=== PATIENT | male | born 2000 | race African-American/Black ===

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

== ENCOUNTER 2018-01-14 08:50 | Emergency (ER) | payer OTHER ==
[~2018-01-14] VITALS: Ht 180.3 cm; Wt 73.9 kg
[2018-01-14 08:59] VITALS: BP 122/90
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
[2018-01-14] MEDS ORDERED: ACETAMINOPHEN 500 MG TABLET PO ONE (09:30)
== END 2018-01-14 09:30 | disposition home or self-care (01) ==
LOC: ER 08:50
DX: G89.11 Acute pain due to trauma (principal); M79.662 Pain in left lower leg; J45.909 Unspecified asthma, uncomplicated; F17.210 Nicotine dependence, cigarettes, uncomplicated
CPT/HCPCS: 99282

== ENCOUNTER 2018-05-13 20:34 | Emergency (ER) | payer OTHER ==
[~2018-05-13] VITALS: Ht 180.3 cm; Wt 79.4 kg
--- NOTE | 2018-05-13 20:39 | ED.ADGEN ---
Past History Past Medical History: Asthma Past Surgical History: Tonsillectomy Smoking: Cigarettes Alcohol Use: Occasionally Drug Use: Other Adult General Chief Complaint Chief Complaint ".. My gut is hurting.... I got this pain here on my Lt. side... I ve had constipation .. before... but this seems different... it been hurting me more tonight.." HPI HPI Patient is a 17 year old male who presents with abdomen pain and Lt flank pain. Pt. denies any trauma. Areas of questionable intake some bad chicken earlier today. No recent travel or specific ill contacts. Does have a history of constipation. Denies any dysuria. Pain appears to be localized flank and lower abdomen. Patient never had a colonoscopy. Review of Systems Review of Systems Constitutional: Denies fever or chills [] Eyes: Denies change in visual acuity, redness, or eye pain [] HENT: Denies nasal congestion or sore throat [] Respiratory: Denies cough or shortness of breath [] Cardiovascular: No additional information not addressed in HPI [] GI: complaints of Lt lower abdominal pain, nausea,. Denies vomiting, bloody stools or diarrhea [] : Denies dysuria or hematuria [] Musculoskeletal: Denies back pain or joint pain [] Integument: Denies rash or skin lesions [] Neurologic: Denies headache, focal weakness or sensory changes [] Endocrine: Denies polyuria or polydipsia [] All other systems were reviewed and found to be within normal limits, except as documented in this note. Family History Family History Non-contributory Current Medications Current Medications Current Medications Medications (Trade) Dose Ordered Sig/Sepideh Start Time Stop Time Status Last Admin Dose Admin Famotidine (Pepcid Vial) 20 mg 1X ONCE 05/13/18 20:45 05/13/18 20:46 DC 05/13/18 21:05 20 MG Ketorolac Tromethamine (Toradol 30mg Vial) 30 mg 1X ONCE 05/13/18 20:45 05/13/18 20:46 DC 05/13/18 21:06 30 MG Lactated Ringer's 1,000 ml @ 1,000 mls/hr Q1H 05/13/18 20:40 05/13/18 21:40 DC 05/13/18 21:04 1,000 MLS/HR Magnesium Hydroxide (Milk Of Magnesia) 2,400 mg STK-MED ONCE 05/14/18 01:42 05/14/18 01:56 DC Ondansetron HCl (Zofran) 8 mg 1X ONCE 05/13/18 20:45 05/13/18 20:46 DC 05/13/18 21:05 8 MG Allergies Allergies Allergies Coded Allergies Type Severity Reaction Last Updated Verified No Known Drug Allergies 12/02/16 No Physical Exam Physical Exam Constitutional: Well developed, well nourished, no acute distress, non-toxic appearance. [] HENT: Normocephalic, atraumatic, bilateral external ears normal, oropharynx moist, no oral exudates, nose normal. [] Eyes: PERRLA, EOMI, conjunctiva normal, no discharge. [] Neck: Normal range of motion, no tenderness, supple, no stridor. [] Cardiovascular:Heart rate regular rhythm, no murmur [] Lungs & Thorax: Bilateral breath sounds clear to auscultation [] Abdomen: Bowel sounds normal, soft, mild Lt flank and abd. pain/ tenderness, no masses, no pulsatile masses. [] No true rebound. Declined rectal Skin: Warm, dry, no erythema, no rash. [] Back: No tenderness, no CVA tenderness. [] Extremities: No tenderness, no cyanosis, no clubbing, ROM intact, no edema. [] No Psoas Neurologic: Alert and oriented X 3, normal motor function, normal sensory function, no focal deficits noted. [] Psychologic: Affect anxious, judgement normal, mood normal. [] Current Patient Data Vital Signs Vital Signs Date Time Temp Pulse Resp B/P (MAP) Pulse Ox O2 Delivery O2 Flow Rate FiO2 05/14/18 01:46 67 18 123/78 (93) 100 Room Air 05/13/18 20:42 97.9 Lab Results Laboratory Tests Test 05/13/18 20:55 05/13/18 22:20 White Blood Count 7.0 x10^3/uL (4.0-11.0) Red Blood Count 4.83 x10^6/uL (4.30-5.70) Hemoglobin 14.4 g/dL (13.0-17.5) Hematocrit 43.0 % (39.0-53.0) Mean Corpuscular Volume 89 fL (79-100) Mean Corpuscular Hemoglobin 30 pg (25-35) Mean Corpuscular Hemoglobin Concent 34 g/dL (31-37) Red Cell Distribution Width 13.1 % (11.5-14.5) Platelet Count 241 x10^3/uL (140-400) Neutrophils (%) (Auto) 55 % (31-73) Lymphocytes (%) (Auto) 37 % (24-48) Monocytes (%) (Auto) 7 % (0-9) Eosinophils (%) (Auto) 0 % (0-3) Basophils (%) (Auto) 1 % (0-3) Neutrophils # (Auto) 3.8 x10^3uL (1.8-7.7) Lymphocytes # (Auto) 2.6 x10^3/uL (1.0-4.8) Monocytes # (Auto) 0.5 x10^3/uL (0.0-1.1) Eosinophils # (Auto) 0.0 x10^3/uL (0.0-0.7) Basophils # (Auto) 0.1 x10^3/uL (0.0-0.2) Prothrombin Time 10.9 SEC (9.4-11.4) Prothrombin Time INR 1.1 (0.9-1.1) PTT 24 SEC (23-33) Sodium Level 145 mmol/L (136-145) Potassium Level 4.1 mmol/L (3.5-5.1) Chloride Level 105 mmol/L (98-107) Carbon Dioxide Level 28 mmol/L (21-32) Anion Gap 12 (6-14) Blood Urea Nitrogen 10 mg/dL (8-26) Creatinine 1.2 mg/dL (0.7-1.3) Estimated GFR (Cockcroft-Gault) 94.4 Glucose Level 91 mg/dL (70-99) Calcium Level 9.4 mg/dL (8.5-10.1) Total Bilirubin 0.7 mg/dL (0.2-1.0) Direct Bilirubin 0.2 mg/dL (0.0-0.2) Aspartate Amino Transferase (AST) 16 U/L (15-37) Alanine Aminotransferase (ALT) 17 U/L (16-63) Alkaline Phosphatase 56 U/L (46-116) Creatine Kinase 347 U/L (39-308) H Troponin I Quantitative < 0.017 ng/mL (0-0.055) Total Protein 7.4 g/dL (6.4-8.2) Albumin 4.3 g/dL (3.4-5.0) Amylase Level 41 U/L (25-115) Lipase 69 U/L (73-393) L Urine Collection Type Unknown Urine Color Yellow Urine Clarity Clear Urine pH 7.0 Urine Specific [place] 1.020 Urine Protein 100 mg/dl (NEG-TRACE) Urine Glucose (UA) Neg mg/dL (NEG) Urine Ketones (Stick) Neg mg/dL (NEG) Urine Blood Neg (NEG) Urine Nitrite Neg (NEG) Urine Bilirubin Neg (NEG) Urine Urobilinogen Dipstick 1 mg/dL (0.2 mg/dL) Urine Leukocyte Esterase Neg (NEG) Urine RBC 3-5 /HPF (0-2) Urine WBC 1-4 /HPF (0-4) Urine Squamous Epithelial Cells Few /LPF Urine Bacteria 0 /HPF (0-FEW) Urine Opiates Screen Neg (NEG) Urine Methadone Screen Neg (NEG) Urine Barbiturates Neg (NEG) Urine Phencyclidine Screen Neg (NEG) Urine Amphetamine/Methamphetamine Pos (NEG) Urine Benzodiazepines Screen Neg (NEG) Urine Cocaine Screen Neg (NEG) Urine Cannabinoids Screen Pos (NEG) Urine Ethyl Alcohol Neg (NEG) EKG EKG [] Radiology/Procedures Radiology/Procedures My interpretation of Abd. Film shows no acute cardio pulmonary findings,,no free air under the diaphragm., Non- specific bowel gas pattern. CT shows no surgical pathology[] Course & Med Decision Making Course & Med Decision Making Pertinent Labs and Imaging studies reviewed. (See chart for details) Clear fluid diet only x 48 hrs. . No solids or milk products. Must allow bowel rest for next 2 days. Follow up with primary. No illicit drug use. Push fluids. Re-exam if no improvement. Recommend colon exam- with scope if persistent interment abd. pain. [] Final Impression Final Impression 1. Abdomen Pain[] 2. Polysubstance Abuse 3. Hematuria 4. Constipation Dragon Disclaimer Dragon Disclaimer This electronic medical record was generated, in whole or in part, using a voice recognition dictation system. JALEN RAPHAEL MD May 13, 2018 20:39
[2018-05-13] MEDS ORDERED: IV RINGERS SOLUTION,LACTATED 1,000 ML IV SCH (20:40)
[2018-05-13] MEDS ORDERED: KETOROLAC 30 MG/ML VIAL. IV ONE (20:45)
[2018-05-13] MEDS ORDERED: ONDANSETRON PF 4 MG/2 ML VIAL. IV ONE (20:45)
[2018-05-13] MEDS ORDERED: FAMOTIDINE 20 MG/2 ML VIAL IVP ONE (20:45)
[2018-05-13 21:18] LABS: BASO # 0.1 x10^3/uL (0.0-0.2); BASO % 1 % (0-3); EOS % 0 % (0-3); HEMOGLOBIN 14.4 g/dL (13.0-17.5); LYMPH # 2.6 x10^3/uL (1.0-4.8); LYMPH % 37 % (24-48); MEAN CORPUSCULAR HEMOGLOBIN 30 pg (25-35); MEAN CORPUSCULAR HGB CONC 34 g/dL (31-37); MEAN CORPUSCULAR VOLUME 89 fL (79-100); MONO # 0.5 x10^3/uL (0.0-1.1); MONO % 7 % (0-9); NEUT # 3.8 x10^3uL (1.8-7.7); NEUT % 55 % (31-73); PLATELET COUNT 241 x10^3/uL (140-400); RED BLOOD COUNT 4.83 x10^6/uL (4.30-5.70); RED CELL DISTRIBUTION WIDTH 13.1 % (11.5-14.5)
[2018-05-13 21:26] LABS: ALBUMIN 4.3 g/dL (3.4-5.0); CALCIUM 9.4 mg/dL (8.5-10.1); CREATININE 1.2 mg/dL (0.7-1.3); DIRECT BILIRUBIN 0.2 mg/dL (0.0-0.2); GFR 94.4; POTASSIUM 4.1 mmol/L (3.5-5.1); TOTAL BILIRUBIN 0.7 mg/dL (0.2-1.0); TOTAL PROTEIN 7.4 g/dL (6.4-8.2)
[2018-05-13 22:46] LABS: BARBITURATES NEG (NEG); BENZODIAZEPINES NEG (NEG); CANNABINOIDS POS (NEG); COCAINE NEG (NEG); METHADONE NEG (NEG); OPIATES NEG (NEG); PHENCYCLIDINE NEG (NEG)
[2018-05-13 22:51] LABS: AMPHETAMINE/METHAMPHETAMINE POS (NEG)
[2018-05-13 23:00] LABS: BILIRUBIN,URINE NEG (NEG); CLARITY,URINE CLEAR; COLOR,URINE YELLOW; GLUCOSE,URINE NEG (NEG); NITRITE,URINE NEG (NEG); UROBILINOGEN,URINE 1 mg/dL (0.2 mg/dL)
[2018-05-13 23:01] LABS: BACTERIA,URINE 0 /HPF (0-FEW)
[2018-05-13 23:02] LABS: SQUAMOUS EPITHELIAL CELL,UR FEW /LPF
--- NOTE | 2018-05-14 01:24 | RAD ---
PQRS Compliance Statement: One or more of the following individualized dose reduction techniques were utilized for this examination: 1. Automated exposure control 2. Adjustment of the mA and/or kV according to patient size 3. Use of iterative reconstruction technique CT ABDOMEN PELVIS WO CONTRAST Clinical Indication: LEFT LOWER QUADRANT AND LEFT FLANK PAIN Comparison: None. Technique: Helical CT imaging of the abdomen and pelvis is performed without IV or oral contrast. Findings: Evaluation of solid organs and bowel is limited without oral and IV contrast, decreasing sensitivity for detection of pathology. Lung bases are clear. Cardiac size normal. Gallbladder is contracted. Liver, spleen, pancreas, adrenal glands, abdominal aorta, and kidneys are normal. Stomach unremarkable. No dilated small bowel. No colon wall thickening. The appendix is normal caliber and there is air in the lumen. No abdominal adenopathy or free fluid. Urinary bladder is normal. Prostate size normal. No pelvic free fluid. No acute bone abnormality. IMPRESSION: No acute abdominal or pelvic abnormality. Electronically signed by: Jamir Gonzalez MD (05/14/2018 1:20 AM) [id number]
[2018-05-14] MEDS ORDERED: MAGNESIUM HYDROXIDE 2,400 MG/30 ML ORAL.SUSP. ONE (01:42)
[2018-05-14] MEDS ORDERED: MAGNESIUM HYDROXIDE 2,400 MG/30 ML ORAL.SUSP. PO ONE (01:45)
[2018-05-14 01:46] VITALS: BP 123/78
--- NOTE | 2018-05-14 08:33 | RAD ---
EXAM: Frontal view of the chest, AP views of the abdomen in upright and supine positions. CLINICAL INDICATION: LEFT SIDED ABDOMINAL PAIN COMPARISON: None. FINDINGS and IMPRESSION: The heart is not enlarged. Mediastinal and hilar contours are normal. No focal parenchymal airspace opacity. No pleural effusion or pneumothorax. No abnormal small or large bowel dilatation, although there is a relative paucity of small bowel gas. No evidence for bowel obstruction. Mild colonic stool content. No abnormal soft tissue mass effect. No suspicious calcifications are seen. No free intraperitoneal gas. Electronically signed by: Graham Adler MD (05/14/2018 8:30 AM) [facility]
== END 2018-05-14 01:56 | disposition home or self-care (01) ==
LOC: ER 20:34
DX: K59.00 Constipation, unspecified (principal); R31.9 Hematuria, unspecified; F19.10 Other psychoactive substance abuse, uncomplicated; F17.210 Nicotine dependence, cigarettes, uncomplicated; J45.909 Unspecified asthma, uncomplicated
CPT/HCPCS: 36415; 74022; 74176; 80048; 80076; 80307; 81001; 82150; 82550; 83690; 84484; 85025; 85610; 85730; 96374; 96375; 99284; J1885; J2405; J3490; J7120

== ENCOUNTER 2020-09-06 21:26 | Emergency (ER) | payer SELFPAY ==
[~2020-09-06] VITALS: Ht 180.3 cm; Wt 78.0 kg
[~2020-09-06 21:26] MED LIST changes: +ALBU2.5V8 IH; -ALBU6.7H IH; +PATCH REMOVAL. MC SCH
--- NOTE | 2020-09-06 21:54 | PHYS DOC ---
Past History Past Medical History: No Pertinent History Past Surgical History: Tonsillectomy Smoking: Cigarettes Alcohol Use: Heavy Drug Use: Marijuana Adult General HPI HPI Patient is an otherwise healthy 19-year-old male who presents with a chief complaint of left shoulder pain. States has been going on for about 3 years, is right on the back of his shoulder blade, 6 out of 10, dull and achy in nature at its worst, intermittent and cannot identify any alleviating or aggravating factors. [facility] he is never seen a doctor for this. [facility] he also would like an STD check although he is having no symptoms for general health purposes. Denies headache, neck pain, chest pain, shortness of breath, abdominal pain, nausea, vomiting, dysuria, hematuria, penile discharge or pain, scrotal pain, diarrhea, blood in the stool or rectal pain. Denies any history of STIs. Review of Systems Review of Systems Review of systems otherwise unremarkable except noted in HPI Allergies Allergies Allergies Coded Allergies Type Severity Reaction Last Updated Verified No Known Drug Allergies 12/02/16 No Physical Exam Physical Exam Constitutional: Well developed, well nourished, no acute distress, non-toxic appearance. [] HENT: Normocephalic, atraumatic, bilateral external ears normal, oropharynx moist, no oral exudates, nose normal. [] Eyes: conjunctiva normal, no discharge. [] Neck: Normal range of motion, no tenderness, Cardiovascular:Heart rate regular rhythm, no murmur [] Lungs & Thorax: Bilateral breath sounds clear to auscultation [] Abdomen: soft, no tenderness, no masses, no pulsatile masses. [] Skin: Warm, dry, no erythema, no rash. [] Back: No tenderness, Extremities: No tenderness, no cyanosis, no clubbing, ROM intact, no edema. [] Neurologic: Alert and oriented X 3, normal motor function, normal sensory function, no focal deficits noted. [] Psychologic: Affect normal, judgement normal, mood normal. [] EKG EKG [] Radiology/Procedures Radiology/Procedures [] Heart Score C/O Chest Pain: No Risk Factors: Risk Factors: DM, Current or recent (<one month) smoker, HTN, HLP, family history of CAD, obesity. Risk Scores: Risk Factors: DM, Current or recent (<one month) smoker, HTN, HLP, family history of CAD, obesity. Course & Med Decision Making Course & Med Decision Making Patient is a 19-year-old male who presents with left shoulder pain and wanting a general health STD check Vital signs not concerning. Physical exam noted above. X-ray with no acute osseous abnormalities. Given Tylenol, ibuprofen and Lidoderm patch. Get her urine for gonorrhea chlamydia. Advise results to be ready in approximately 48 hours. Given pain regimen for home. Given contact information for local primary care physician to follow-up with. Advised to call first thing in the morning to establish care and set up a follow-up visit. Patient grateful, verbalized understanding and agreed with plan of discharge. [] Dragon Disclaimer Dragon Disclaimer This electronic medical record was generated, in whole or in part, using a voice recognition dictation system. Departure Departure: Impression: Primary Impression: Shoulder pain Additional Impression: Potential exposure to STD Disposition: 01 DC HOME SELF CARE/HOMELESS Condition: GOOD Referrals: MAGUI FONSECA MD Patient Instructions: RICE - Routine Care for Injuries Additional Instructions: Please read all the attached information. Please begin a Tylenol, ibuprofen, Lidoderm and ice regimen as discussed and demonstrated. You wanted a STD check for general health purposes although you have no symptoms. Your urine was collected and your results should be ready in approximately 48 hours. You were given the contact information for local primary care physician. We also discussed the [facility] clinic and [facility] clinic as well. Please call 1 of these first thing in the morning to establish care and set up follow-up visits. Please come back to the ED with new or concerning symptoms. Problem Qualifiers ROZ DAVID MD Sep 06, 2020 21:54
--- NOTE | 2020-09-06 22:10 | RAD ---
Exam: Left shoulder 3 views INDICATION: Shoulder pain, chronic worsening TECHNIQUE: Frontal view of the left shoulder with internal and external rotation and transscapular Y views. Comparisons: None FINDINGS: Bone mineralization is normal. No acute or healed fractures. Soft tissues are unremarkable. Joint [place] are well-maintained. IMPRESSION: No acute osseous abnormality. Electronically signed by: Manjinder Krause MD (09/06/2020 10:08 PM) [facility]
[2020-09-06 22:30] VITALS: BP 136/86
[2020-09-06] MEDS ORDERED: IBUPROFEN 600 MG TABLET. PO ONE (22:30)
[2020-09-06] MEDS ORDERED: ACETAMINOPHEN 500 MG TABLET PO ONE (22:30)
[2020-09-06] MEDS ORDERED: LIDOCAINE (700MG/PATCH) PATCH. TD SCH (22:30)
== END 2020-09-06 22:30 | disposition home or self-care (01) ==
LOC: ER 21:26
DX: M25.512 Pain in left shoulder (principal); F12.10 Cannabis abuse, uncomplicated; F17.210 Nicotine dependence, cigarettes, uncomplicated; Z20.2 Contact with and (suspected) exposure to infections with a predominantly sexual mode of transmission
CPT/HCPCS: 73030; 99283-25